=== PATIENT | female | born 1975 ===

== ENCOUNTER 2018-10-06 17:25 | Emergency (ER) | payer SELFPAY ==
[2018-10-06 17:26] VITALS: BMI 23.0
--- NOTE | 2018-10-06 20:04 | ED PDOC ---
HPI: Female Pain Time Seen by Provider: 10/06/18 18:08 Chief Complaint (Nursing): Female Genitourinary Chief Complaint (Provider): Vaginal bleeding in Additional Complaint(s): 43 yo female, (1 ectopic) presents with vaginal bleeding in . 08/29/18 - Light bleeding. Pt was seen in [facility]. Beta 2500 at this time. No yolk sac or pole on US. [address] weeks [address] Cormier saw FHT on US in office. 10/01/19 - Dr. Ahuja in [place]. Slight spotting, no heart beat on US. Seen at [place] and they told her she wasn't and only had ovarian cyst. 10/04/18 - Pt began having heavy vaginal bleeding. 10/06/18 - Saw Dr. Cormier today and was told to come cleaned out. Abnormal Vaginal Bleeding: Yes Past Medical History Reviewed: Historical Data, Nursing Documentation, Vital Signs Vital Signs: Last Vital Signs Temp 97.2 F L 10/06/18 17:56 Pulse 80 10/06/18 17:56 Resp 16 10/06/18 17:56 BP 99/65 L 10/06/18 17:56 Pulse Ox 100 10/06/18 17:56 - Medical History PMH: No Chronic Diseases Denies: Chronic Kidney Disease - Surgical History Surgical History: No Surg Hx - Family History Family History: States: Unknown Family Hx - Living Arrangements Living Arrangements: With Family - Immunization History Hx Tetanus Toxoid Vaccination: No Hx Influenza Vaccination: No Hx Pneumococcal Vaccination: No - Home Medications Home Medications: Ambulatory Orders Medication Instructions Recorded 21/Iron Fu/Folic Acid 1 each PO DAILY #30 tablet 08/29/18 [ Complete Caplet] - Allergies Allergies/Adverse Reactions: Allergies Allergy/AdvReac Type Severity Reaction Status Date / Time No Known Allergies Allergy Verified 10/06/18 17:55 Review of Systems ROS Statement: Except As Marked, All Systems Reviewed And Found Negative Constitutional: Negative for: Fever, Chills Genitourinary Female: Positive for: Vaginal Bleeding. Negative for: Dysuria, Frequency, Vaginal Discharge, Pelvic Pain Physical Exam - Reviewed Nursing Documentation Reviewed: Yes Vital Signs Reviewed: Yes - Physical Exam Appears: Positive for: Well, Non-toxic, No Acute Distress Head Exam: Positive for: ATRAUMATIC, NORMAL INSPECTION, NORMOCEPHALIC Skin: Positive for: Normal Color, Warm, DRY Eye Exam: Positive for: Normal appearance ENT: Positive for: Normal ENT Inspection Neck: Positive for: Normal, Painless ROM Cardiovascular/Chest: Positive for: Regular Rate, Rhythm Respiratory: Positive for: Normal Breath Sounds. Negative for: Accessory Muscle Use, Respiratory Distress Gastrointestinal/Abdominal: Positive for: Normal Exam, Soft. Negative for: Tenderness Back: Positive for: Normal Inspection Extremity: Positive for: Normal ROM Neurologic/Psych: Positive for: Alert, Oriented - Laboratory Results Result Diagrams: 10/06/18 18:53 10/06/18 19:58 - ECG O2 Sat by Pulse Oximetry: 100 Medical Decision Making Medical Decision Making: Endorsed pending US and labs. Disposition - Clinical Impression Clinical Impression: Miscarriage - Patient ED Disposition Is Patient to be Admitted: Transfer of Care - Disposition [facility]] Papo Ruby MD [Staff Provider] - Disposition: Transfer of Care Disposition Time: 20:05 Condition: IMPROVED Additional Instructions: Seguimiento con especialista en medicina materna. Instructions: Ovarian Cysts, Threatened Miscarriage Print Language: GUAMANIAN
[2018-10-06 20:05] LABS: BASO % 0.3 % (0.0-2.0); EOS # 0.1 K/uL (0.0-0.7); EOS % 0.7 % (0.0-4.0); HEMOGLOBIN 11.6 g/dL (12.0-16.0); LYMPH # 2.3 K/uL (1.0-4.3); LYMPH % 28.1 % (20.0-40.0); MEAN CELL VOLUME 90.3 fl (81.0-99.0); MEAN CORPUSCULAR HEMOGLOBIN 30.9 pg (27.0-31.0); MEAN CORPUSCULAR HGB CONC 34.2 g/dL (33.0-37.0); MEAN PLATELET VOLUME 8.3 fl (7.2-11.7); MONO # 0.5 K/uL (0.0-0.8); MONO % 6.1 % (0.0-10.0); NEUT # 5.4 K/uL (1.8-7.0); NEUT % 64.8 % (50.0-75.0); NRBC % 0.1 % (0.0-0.0); RBC 3.74 Mil/uL (3.80-5.20); RED CELL DISTRIBUTION WIDTH 13.5 % (11.5-14.5); WHITE BLOOD COUNT 8.3 K/uL (4.8-10.8)
[2018-10-06 20:32] LABS: ALB/GLOB RATIO 1.3 (1.0-2.1); ALBUMIN 4.4 g/dL (3.5-5.0); ALT/SGPT 18 U/L (9-52); AST/SGOT 30 U/L (14-36); BLOOD UREA NITROGEN 9 mg/dl (7-17); CALCIUM 9.7 mg/dL (8.4-10.2); GFR NON-AFRICAN AMERICAN > 60
--- NOTE | 2018-10-06 21:32 | ED PDOC ---
- Laboratory Results Result Diagrams: 10/06/18 18:53 10/06/18 19:58 - ECG O2 Sat by Pulse Oximetry: 100 - Progress ED Course And Treament: History Vaginal bleeding in . Comparison None available. Findings Uterus 4 yolk sacs are seen, the largest measures 1.07 cm. Anechoic regions are seen within the chorion measuring 0.54 x 0.67 x 0.79 cm and 1.24 x 0.84 x 1.71 cm. Gestational sac diameter equivalent to 8 wks/1 day gestation. Uterus measures 9.59 x 8.22 x 6.47 cm. No mass Cervix Long and closed measuring 4.98 cm. No cervical abnormality seen. Right Ovary Measures 3.61 x 3.1 x 3.32 cm. No mass. Normal flow. Complex cysts measure 1.72 x 1.87 x 2.02 cm, 1.41 x 1.5 x 1.48 cm and 1.19 x 0.97 x 1.14 cm. Left Ovary Measures 3.23 x 1.82 x 1.75 cm. No mass. Normal flow. Free Fluid None. Other Findings None. Impression 1. Single intrauterine gestational sac with 4 yolk sacs. 2. Anechoic regions within the chorion. 3. Complex right ovarian cysts. 4. No pole or heart motion detected. Case discussed with Dr. Leal, Mud Worker on-call; states patient will need to follow up with MFM due to u/s findings. Patient educated on findings (via [employer]/certified trim technician), advised follow up MFM Return precautions given Disposition - Clinical Impression Clinical Impression: Threatened miscarriage, Ovarian cyst - POA Present On Arrival: None - Disposition [facility]] Papo Ruby MD [Staff Provider] - Disposition: Routine/Home Disposition Time: 00:04 Condition: IMPROVED Additional Instructions: Seguimiento con especialista en medicina materna. Instructions: Threatened Miscarriage, Ovarian Cysts Print Language: FRISIAN
[2018-10-07 00:58] VITALS: BP 119/78; PULSE 76; RESP 17; TEMP 97.9; O2SAT 100
--- NOTE | 2018-10-07 11:35 | US ---
Date of service: 10/06/2018 PROCEDURE: OB Pelvic Ultrasound HISTORY: Vaginal bleeding in COMPARISON: None available. FINDINGS: UTERUS: Single intrauterine gestation. Gestational sac diameter measures 3.14 cm equivalent to 8 weeks and 1 day of gestational age. Multilocular yolk sac is visualized. pole is not identified on the current examination. age (Ultrasound estimated): 8 weeks and 1 day Casi-gestational hemorrhage: There is a 5 x 7 x 8 mm subchorionic hemorrhage and 1.2 x 0.8 x 1.7 cm subchorionic hemorrhage. Uterus measures cm. No mass CERVIX: Long and closed. No cervical abnormality seen. RIGHT OVARY: Measures 3.6 x 3.1 x 3.3 cm. No mass. Normal flow. There are 3 complicated cysts, the largest measures 1.7 x 1.8 x 2.0 cm LEFT OVARY: Measures 3.2 x 1.8 x 1.7 cm. No mass. Normal flow. FREE FLUID: None. OTHER FINDINGS: None. IMPRESSION: Large gestational sac with multilocular yolk sac with mean, 2 areas of subchorionic hemorrhage and absent pole concerning for an embryonic / failure. Clinical follow-up is advised. A preliminary report was provided by [employer]. The final report with additional findings is tagged to the PA review folder.
== END 2018-10-07 00:16 | disposition home or self-care (01) ==
LOC: H.ER 17:25
DX: O20.0 Threatened abortion (principal); N83.201 Unspecified ovarian cyst, right side; O34.81 Maternal care for other abnormalities of pelvic organs, first trimester; Z3A.08 8 weeks gestation of pregnancy